=== PATIENT | female | born 2000 | race Caucasian/White ===

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

== ENCOUNTER → 2021-05-27 | Outpatient (CLI) | payer MEDICAID, SELFPAY ==
[2021-05-29 07:07] LABS: Chlamydia By Nucleic Acid AMP Negative (Negative)
[2021-05-29 08:07] LABS: Gonococcus By Nucleic Acid AMP Negative (Negative)
== END | disposition home or self-care (01) ==
LOC: LABSPEC 12:19
PROVIDERS: PCP Family Medicine; Visit Provider Obstetrics & Gynecology
DX: Z11.3 Encounter for screening for infections with a predominantly sexual mode of transmission (principal)
CPT/HCPCS: 87491; 87591